=== PATIENT | male | born 1940 | race Caucasian/White ===

== ENCOUNTER → 2023-10-12 | Outpatient (CLI) | payer MEDICARE | END | disposition home or self-care (01) | LOC: RAH 12:13 | PROVIDERS: ATTEND Internal Medicine | DX: K43.9 Ventral hernia without obstruction or gangrene (principal); N28.1 Cyst of kidney, acquired; R19.00 Intra-abdominal and pelvic swelling, mass and lump, unspecified site | CPT/HCPCS: 74176 ==